=== PATIENT | female | born 1965 | race Caucasian/White ===

== ENCOUNTER 2016-10-16 19:39 | Emergency (ER) | payer OTHER ==
[~2016-10-16] VITALS: Ht 162.6 cm; Wt 137.2 kg
[2016-10-16 19:42] VITALS: BP 159/98; PULSE 105; RESP 18; TEMP 98.3; O2SAT 97
--- NOTE | 2016-10-16 20:02 | PD ---
HPI Chief Complaint: Complaint Time Seen by Provider: 19:47 Travel History International Travel<30 days: No Contact w/Intl Traveler<30days: No Traveled to known affect area: No History of Present Illness HPI 51-year-old woman presents to the emergency department complaining of lower abdominal discomfort, dysuria, frequency, ongoing for couple days. She states it feels like when she's had urinary tract infections in the past. She states she used to get them very frequently but has not gotten them as much recently. For some reason states she is to get him when she was on vacation. No fevers or chills. No nausea or vomiting. No vaginal discharge or vaginal bleeding. Patient is status post hysterectomy. She states she is not sexually active. History Past Medical History Narrative Medical Arthritis/fibromyalgia/chronic pain, on chronic opiates Hypertension Social History Tobacco Use: No Allergies-Medications (Allergen,Severity, Reaction): Coded Allergies: No Known Allergies (Unverified , 10/16/16) Reported Meds & Prescriptions Reported Meds & Active Scripts Active Reported Viibryd (Vilazodone) 40 Mg Tab 40 Mg PO DAILY Amlodipine (Amlodipine Besylate) 10 Mg Tab 10 Mg PO DAILY Losartan (Losartan Potassium) 100 Mg Tab 100 Mg PO HS Vicodin (Hydrocodone-Acetaminophen) 5-300 Mg Tab 1 Tab PO BID PRN Klonopin (Clonazepam) 1 Mg Tab 1 Mg PO BID Klonopin (Clonazepam) 1 Mg Tab 1 Mg PO BID Lyrica (Pregabalin) 100 Mg Cap 100 Mg PO BID Savella (Milnacipran) 100 Mg Tab 100 Mg PO BID Review of Systems Except as stated in HPI: all other systems reviewed are Neg Physical Exam Narrative GENERAL: Well-appearing 51-year-old woman, no acute distress. SKIN: Warm and dry. CARDIOVASCULAR: Warm and well perfused. RESPIRATORY: Normal rate and effort. Abdominal: No CVA tenderness to percussion. Minimal lower abdominal tenderness to palpation. No rebound or guarding. No upper abdominal tenderness. NEUROLOGICAL: Awake and alert. No gross deficits. Data Data Last Documented VS Vital Signs Date Time Temp Pulse Resp B/P Pulse Ox O2 Delivery O2 Flow Rate FiO2 10/16/16 19:42 98.3 105 18 159/98 97 Orders Urinalysis - C+S If Indicated (10/16/16 19:56) Urine Culture (10/16/16 20:01) Labs Laboratory Tests Test 10/16/16 20:01 Urine Color YELLOW Urine Turbidity MOD Urine pH 5.5 Urine Specific [place] 1.018 Urine Protein 100 mg/dL Urine Glucose (UA) NEG mg/dL Urine Ketones NEG mg/dL Urine Occult Blood LARGE Urine Nitrite POS Urine Bilirubin NEG Urine Leukocyte Esterase MOD Urine RBC 25-49 /hpf Urine WBC 50-99 /hpf Urine WBC Clumps MANY Urine Squamous Epithelial 0-5 /hpf Cells Urine Bacteria MOD /hpf Urine Mucus OCC /lpf Microscopic Urinalysis Comment CULTURE INDICATED MDM Medical Decision Making Medical Screen Exam Complete: Yes Emergency Medical Condition: Yes Interpretation(s) UA with positive red blood cells, white blood cells, nitrites, leukocyte esterase. Differential Diagnosis UTI, yeast infection, vaginitis, appendicitis, other Narrative Course Medical decision making 51-year-old with lower abdominal discomfort dysuria and frequency, no vaginal discharge, not sexually active. Symptoms are suggestive of bladder infection. We'll check UA, antibiotic treatment. Diagnosis Primary Impression: Acute cystitis Additional Instructions: Take antibiotics as prescribed. Follow-up with your primary doctor soon as you returned home. Return to the emergency department for any worsening abdominal pain, fevers, vomiting, or any other new or worsening symptoms. Med/Other Pt SpecificInfo: Prescription(s) given Scripts Cephalexin (Keflex)500 Mg [id number] Mg PO TID #10 CAP Ref 0 Prov:Christian Mcclellan MD 10/16/16 Disposition: 01 DISCHARGE HOME Condition: Stable Christian Mcclellan MD Oct 16, 2016 20:01
[2016-10-16 20:04] LABS: BLOOD, URINE LARGE (NEG); GLUCOSE,URINE NEG (NEG); KETONE, URINE NEG (NEG); PH, URINE 5.5 (5.0-8.5)
[2016-10-16] MEDS ORDERED: HYDR-3111 PO (20:06)
[2016-10-16] MEDS ORDERED: LOSA100T PO (20:06)
[2016-10-16] MEDS ORDERED: MILN100 PO (20:06)
[2016-10-16] MEDS ORDERED: AMLO10TA2 PO (20:06)
[2016-10-16] MEDS ORDERED: CLON1 PO (20:06)
[2016-10-16] MEDS ORDERED: LYRI100C PO (20:06)
[2016-10-16] MEDS ORDERED: VIIB40TA PO (20:06)
[2016-10-16 20:30] LABS: NITRITE,URINE POS (NEG)
[2016-10-16 20:31] LABS: MUCUS URINE OCC /lpf (OCC); URINE COLOR YELLOW (YELLW/STRAW)
[2016-10-16 20:32] LABS: BACTERIA, URINE MOD /hpf; COMMENT (UR) CULTURE INDICATED; CULTURE IF INDICATED CULTURE INDICATED; SQUAMOUS EPITHELIAL CELL URINE 0-5 /hpf (0-5)
[2016-10-16] MEDS ORDERED: CEPH-460 PO (20:36)
[2016-10-16] MEDS ORDERED: PHEN0.4T PO (20:41)
[2016-10-16] MEDS ORDERED: BACT800T5 PO (20:41)
[2016-10-16] MEDS ORDERED: SULFAMETHOXAZOLE-TRIMETHOPRIM DS 800-160 MG TAB PO ONE (20:45)
== END 2016-10-16 21:00 | disposition home or self-care (01) ==
LOC: PHED 19:39
DX: N30.00 Acute cystitis without hematuria (principal); B96.20 Unspecified Escherichia coli [E. coli] as the cause of diseases classified elsewhere; G89.29 Other chronic pain; I10 Essential (primary) hypertension; M79.7 Fibromyalgia
CPT/HCPCS: 81001; 87077; 87086; 87186; 99283